=== PATIENT | female | born 1995 | race Caucasian/White ===

== ENCOUNTER 2019-04-25 06:51 | Day surgery (SDC) | payer OTHER ==
[2019-04-25 08:00] LABS: ADD MAN DIFF? NO
[2019-04-25 08:02] LABS: BASOPHIL # 0.1 10^3/ul (0.0-0.1); BASOPHILS % 0.9 % (0.0-2.0); EOSINOPHILS # 0.2 10^3/ul (0.0-0.5); EOSINOPHILS % 3.8 % (0.0-7.0); HEMATOCRIT 35.9 % (37.0-47.0); HEMOGLOBIN 11.6 g/dl (12.0-16.0); LYMPHOCYTES # 1.5 10^3/ul (0.8-2.9); LYMPHOCYTES % 24.8 % (15.0-51.0); MEAN CORPUSCULAR HEMOGLOBIN 29.4 pg (29.0-33.0); MEAN CORPUSCULAR HGB CONC 32.3 g/dl (32.0-37.0); MEAN CORPUSCULAR VOLUME 90.9 fl (82.0-101.0); MONOCYTE # 0.4 10^3/ul (0.3-0.9); MONOCYTES % 6.2 % (0.0-11.0); NEUTROPHIL # 3.7 10^3/ul (1.6-7.5); PLATELET COUNT 290 10^3/UL (140-415); RED BLOOD COUNT 3.95 10^6/ul (4.20-5.40); RED CELL DISTRIBUTION WIDTH 12.2 % (11.5-14.5)
[2019-04-25 08:02] LABS: WHITE BLOOD COUNT 5.8 10^3/ul (4.8-10.8)
[2019-04-25 08:22] LABS: INR 1.03; PROTIME 13.6 Sec (11.9-14.9); PT RATIO 1.1
[2019-04-25] MEDS ORDERED: FENTAnyl 50 MCG/ML VIAL IV ×6 (08:30→10:00)
[2019-04-25] MEDS ORDERED: OXYCODONE/ACETAMINOPHEN (5/325) TAB PO ×3 (08:30→10:00)
[2019-04-25] MEDS ORDERED: MEPERIDINE 25 MG INJ IV ×2 (08:30→10:00)
[2019-04-25] MEDS ORDERED: ONDANSETRON 4 MG INJ IV ×2 (08:30→10:00)
[2019-04-25] MEDS ORDERED: MEPERIDINE 100 MG INJ (09:01)
[2019-04-25] MEDS ORDERED: PROPOFOL 20 ML (09:01)
[2019-04-25] MEDS ORDERED: LIDOCAINE 2% (SDV) 5 ML INJ (09:01)
[2019-04-25] MEDS ORDERED: ONDANSETRON 4 MG INJ (09:38)
[2019-04-25] MEDS ORDERED: METOCLOPRAMIDE 10 MG INJ (09:38)
[2019-04-25] MEDS ORDERED: DIPHENHYDRAMINE 50 MG INJ IV (10:00)
[2019-04-25] MEDS ORDERED: METOCLOPRAMIDE 10 MG INJ IV (10:00)
[2019-04-25] MEDS ORDERED: MIDAZOLAM 1 MG/ML 2 ML INJ IV (10:00)
[2019-04-25] MEDS: DOXYCYCLINE 100 MG in SOD CHLORIDE 0.9% 250 ML IVPB (10:04)
[2019-04-25] MEDS: OXYCODONE/ACETAMINOPHEN (5/325) TAB PO (10:57)
== END 2019-04-25 12:10 | disposition home or self-care (01) ==
LOC: SDS 06:51
DX: O03.4 Incomplete spontaneous abortion without complication (principal)
CPT/HCPCS: 59812; 84703; 85025; 85610; 85730; 86900; 86901; 88305